=== PATIENT | female | born 1950 | race Caucasian/White ===

== ENCOUNTER 2021-04-29 14:55 | Emergency (ER) | payer MEDICARE, SELFPAY ==
[2021-04-29 15:13] VITALS: BP 131/47; PULSE 66; RESP 18; TEMP 36.8; O2SAT 100
--- NOTE | 2021-04-29 15:13 | ED.WOUNDLAC ---
HPI - Wound/Laceration General Chief Complaint: Wound/Laceration Stated Complaint: laceration to left foot Source: patient Mode of arrival: ambulatory Limitations: no limitations History of Present Illness HPI narrative: Patient is a 7-year-old female who presents with laceration to dorsal left foot. Patient reports dropping a butter knife while cooking this evening. She denies other injuries. Full flexion extension of foot. Bleeding controlled at this time with dressing. Patient is unknown when last tetanus was. She denies taking [id number] medications prior to arrival. Related Data Home Medications Medication Instructions Recorded Confirmed atenolol 50 mg PO DAILY 04/29/21 04/29/21 colestipol 1 g PO DAILY 04/29/21 04/29/21 desloratadine 5 mg PO DAILY 04/29/21 04/29/21 rosuvastatin 40 mg PO DAILY 04/29/21 04/29/21 Allergies Allergy/AdvReac Type Severity Reaction Status Date / Time amoxicillin Allergy Unknown Unknown Verified 04/29/21 15:31 Sulfa (Sulfonamide Allergy Unknown Unknown Verified 04/29/21 15:31 Antibiotics) Review of Systems Review of Systems: CONSTITUTIONAL: Denies fever, chills, or sweats. EYES: Denies visual changes, redness, or discharge. ENT: Denies rhinorrhea, congestion, sore throat, or otalgia. CARDIOVASCULAR: Denies chest pain, palpitations, or edema. RESPIRATORY: Denies cough or dyspnea. GASTROINTESTINAL: Denies abdominal pain, nausea, vomiting, or diarrhea. GENITOURINARY: Denies dysuria or hematuria. SKIN: Laceration to the left foot MUSCULOSKELETAL: Denies back pain, joint pain, or myalgia. NEUROLOGIC: Denies headache, numbness, dizziness, or weakness. PSYCHIATRIC: Denies anxiety or depression. [facility] Past Medical History Medical History Anxiety Arthritis GERD (gastroesophageal reflux disease) HTN (hypertension) Hypercholesterolemia IBS (irritable bowel syndrome) Urinary tract infection Uterine fibroid Surgical History Surgical History History of hysterectomy Hx of cholecystectomy Family History Family History (Updated 04/29/21 @ 15:51 by MARGARITA Dumont) Other Acute myocardial infarction Depression Heart disease Hypertension Malignant neoplasm of prostate Social History Social History (Updated 04/29/21 @ 15:52 by MARGARITA Dumont) Smoking status: Never smoker Alcohol intake: never Substance use: never Living arrangements: with family Occupation/Education: retired Comments At the time of signature, I have reviewed and agree with nursing past medical, surgical, social, and family history unless otherwise noted. Please see nursing chart for further information. There is no relevant family history pertinent to the presenting complaint. Exam Narrative: GENERAL: Well-appearing, well-nourished, and in no acute distress. HEAD: Normocephalic, atraumatic. EYES: EOMI. No redness or drainage. Conjunctiva are normal. ENT: Mucous membranes pink and moist. CHEST: No respiratory distress. HEART: Regular rate and rhythm. EXTREMITIES: Normal range of motion. No edema. SKIN: Approximate 2.75 cm laceration to dorsal left foot NEURO: No focal deficits. Alert and oriented x3. Gait steady. PSYCH: Normal affect. No signs of depression or anxiety. Procedures Laceration Laceration 1: Date: 04/29/21 Time: 15:53 Site: lower extremity Side (If applicable): left Size (cm): 2.75 Description: linear Depth: simple, single layer Local Anesthetic: lidocaine 1% Amount of anesthesia used (mL): 3 Pre-repair: irrigated ====== Skin Level ====== Skin layer closed with: nylon Size (cm): 5-0 Number of sutures: 9 Technique: simple, interrupted ====== Subcutaneous Layer ====== ====== Muscle Layer ====== ====== Tendon Layer ======
[2021-04-29] MEDS: TETANUS,DIPHTHERIA,AC PERTUSSIS ADULT (0.5 ML) BOOSTRIX IM (15:26)
== END 2021-04-29 16:03 | disposition home or self-care (01) ==
PROVIDERS: Emergency Provider Nurse Practitioner; PCP Family Medicine
DX: S91.312A Laceration without foreign body, left foot, initial encounter (principal); F41.9 Anxiety disorder, unspecified; I10 Essential (primary) hypertension; Z23 Encounter for immunization; W26.0XXA Contact with knife, initial encounter
CPT/HCPCS: 12002; 90471; 90715; 99212; G0463

== ENCOUNTER → 2022-01-30 15:33 | Outpatient (CLI) | payer MEDICARE, SELFPAY ==
--- NOTE | ~2022-01-30 | DEXA_ITS ---
Bone Density Report Name: RYDER BUCKNER Age: 71 Sex: Female Ethnicity: White Date of : 1950 Indication: postmenopausal; screening for osteoporosis; hysterectomy; Referring Provider: VAHID, JUAN Almeida Study: Bone densitometry was performed. Exam Date: January 30, 2022 Accession number: [id number] Bone Density: Region BMD T-score Z-score Classification AP Spine (L1-L4) 1.000 -0.4 1.8 Normal Femoral Neck (Left) 0.742 -1.0 0.9 Normal Total Hip (Left) 0.784 -1.3 0.3 Osteopenia Femoral Neck (Right) 0.939 0.8 2.7 Normal Total Hip (Right) 0.776 -1.4 0.2 Osteopenia Total Hip Mean 0.780 -1.4 0.3 Osteopenia World Health Organization criteria for BMD impression classify patients as: Normal (T-score at or above -1.0), Osteopenia (T-score between -1.0 and -2.5), or Osteoporosis (T-score at or below -2.5). 10-year Fracture Risk(1): Major Osteoporotic Fracture 8.9% Hip Fracture 1.1% Reported Risk Factors: [place] (), Neck BMD=0.742, BMI=23.6 (1) FRAX(R) Version 3.08. Fracture probability calculated for an untreated patient. Fracture probability may be lower if the patient has received treatment. Clinical Information Provided by Patient: Has the following medical conditions: Hysterectomy Patient maximum height was 63.0 Menopause Age: 50 No regular weight bearing exercise Drinks caffeinated beverages Onset of menses at age 15 Number of children 2 Impression: The patient has low bone mass, based on the Right Total Hip T-score. The patient has an estimated ten-year risk of hip fracture of 1.1% and an estimated ten-year risk of major fracture of 8.9%, based on the WHO FRAX algorithm. Discussion: BONE DENSITY IS LOW AT ONE OR MORE SKELETAL SITES. This patient's lowest T-score is low at one or more skeletal sites. It meets the World Health Organization's (WHO) criteria for ?low bone mass? (T-score between -1.0 and -2.5). The patient's 10-year risk of fracture as calculated by FRAX is less than the threshold where pharmacological therapy is recommended by the National Osteoporosis Foundation (NOF). However, all treatment decisions require clinical judgment and consideration of individual patient factors, including patient preferences, comorbidities, previous drug use, risk factors not captured in the FRAX model (e.g., frailty, falls, vitamin D deficiency, increased bone turnover, interval significant decline in bone density) and possible under or overestimation of fracture risk by FRAX. The patient should follow a healthful lifestyle (good nutrition with adequate calcium and vitamin D, and appropriate weight-bearing exercise). Follow-Up: Consider repeating this study in 2 to 3 years to reassess this patient's status, or sooner if there is some new clinical indication. Reported by: DELON on 01/10
== END ==
PROVIDERS: Visit Provider Family Medicine
DX: Z78.0 Asymptomatic menopausal state (principal); M85.89 Other specified disorders of bone density and structure, multiple sites
CPT/HCPCS: 77080

== ENCOUNTER 2022-05-31 13:23 | Emergency (ER) | payer MEDICARE, SELFPAY ==
--- NOTE | 2022-05-31 14:03 | ECG_ITS ---
Measurements Intervals [place] Rate: 60 P: 49 AK: 149 QRS: 42 QRSD: 92 T: 47 QT: 404 QTc: 406 Interpretive Statements SINUS RHYTHM NO PREVIOUS ECG AVAILABLE FOR COMPARISON Electronically Signed On 06-01-2022 8:48:15 CDT by Michelle Lacey M.D.
--- NOTE | 2022-05-31 14:07 | ED.CHESTPAIN ---
HPI - Chest Pain General Chief Complaint: Chest Pain Stated Complaint: PULLED MUSCLE Time Seen by Provider: 05/31/22 13:55 Source: patient Mode of arrival: ambulatory Limitations: no limitations History of Present Illness HPI narrative: This was a 71-year-old female patient presenting to the clinic today with complaints of left-sided chest pain and left arm pain. She denies any shortness of breath or palpitations. She reports that she was lifting and reaching for heavy things yesterday and developed pain afterwards. She denies any fever or chills. States the pain is a dull ache and is more painful when she raises her left arm. States she thinks she may have pulled a muscle Related Data Home Medications Medication Instructions Recorded Confirmed atenolol 50 mg tablet 50 mg PO DAILY 04/29/21 04/29/21 colestipol 1 gram tablet 1 g PO DAILY 04/29/21 04/29/21 desloratadine 5 mg tablet 5 mg PO DAILY 04/29/21 04/29/21 rosuvastatin 40 mg tablet 40 mg PO DAILY 04/29/21 04/29/21 Allergies Allergy/AdvReac Type Severity Reaction Status Date / Time amoxicillin Allergy Unknown Unknown Verified 04/29/21 15:31 Sulfa (Sulfonamide Allergy Unknown Unknown Verified 04/29/21 15:31 Antibiotics) Review of Systems Review of Systems: Pertinent positives per HPI. Patient denies any fever, chills, rash, headache, visual changes, dizziness, cough, runny nose, sore throat, shortness of breath,palpitations, nausea, vomiting, diarrhea, constipation, abdominal pain, or any urinary issues. [facility] Past Medical History Medical History Anxiety Arthritis GERD (gastroesophageal reflux disease) HTN (hypertension) Hypercholesterolemia IBS (irritable bowel syndrome) Urinary tract infection Uterine fibroid Surgical History Surgical History History of hysterectomy Hx of cholecystectomy Family History Family History Other Acute myocardial infarction Depression Heart disease Hypertension Malignant neoplasm of prostate Social History Social History Smoking status: Never smoker Alcohol intake: never Substance use: never Comments At the time of my signature, I reviewed and agree with the nursing past medical, surgical, social, and family history. There is no relevant family history pertinent to the patient complaint. Exam Narrative: General: Well-developed, well nourished, in no apparent distress Head: Normocephalic, atraumatic. Chest: No swelling, masses, or lesions noted, normal appearance, even rise and fall of chest wall with respirations, tenderness to palpation over the left anterior chest wall Cardio: Regular rate and rhythm, s1 and s2 normal, no murmur appreciated. Resp: Clear to auscultation bilaterally, no rhonchi, rales, wheezing or rubs. Extremities: No deformity, no edema, no cyanosis, capillary refill less than 2 seconds, peripheral pulses palpable and strong. Integumentary: [place], warm, and dry, intact without lesion, no rashes. Course Course Emergency Course: Portions of this record may have been created with voice recognition software. Level of Care: Express Care Visit Vital Signs Vital signs: Vital signs reviewed MDM - Chest Pain MDM Narrative Medical decision making narrative: At the time of the patient is resting comfortably on exam table. EKG was performed and showed normal sinus rhythm heart rate 60 beats per minute without ectopy. I suspect patient has acute chest wall pain due to inflammation. Supportive measures were discussed with the patient she voiced understanding of discharge instructions and agrees with the treatment plan. Differential Diagnosis Differential diagnosis: Likely stable angina, unstable angina pectoris, atypical chest pain, st
[2022-05-31 14:18] VITALS: BP 128/63; PULSE 64; RESP 16; TEMP 37.1; O2SAT 99
== END 2022-05-31 14:15 | disposition home or self-care (01) ==
PROVIDERS: Emergency Provider Nurse Practitioner Family; PCP Family Medicine
DX: R07.89 Other chest pain (principal); M19.90 Unspecified osteoarthritis, unspecified site; K21.9 Gastro-esophageal reflux disease without esophagitis; I10 Essential (primary) hypertension; E78.00 Pure hypercholesterolemia, unspecified
CPT/HCPCS: 93005; 99213; G0463

== ENCOUNTER 2023-08-01 15:24 | Emergency (ER) | payer MEDICARE, SELFPAY ==
--- NOTE | ~2023-08-01 | XR_ITS ---
XR knee RT 3V DATE: 08/01/2023 16:09 INDICATION: Fall 2 days ago. Right knee injury, pain TECHNIQUE: [place] and standing AP and lateral views COMPARISON: None FINDINGS: No fracture or dislocation or joint effusion. No periosteal reaction or bone destruction, r adiopaque intra-articular loose body or chondrocalcinosis. There is mild prominence of the medial tib ial spine. IMPRESSION: Mild degenerative change. No significant abnormality Reviewed, dictated and finalized at location A. NG ROW BOSS
[2023-08-01 15:35] VITALS: BP 128/59; PULSE 70; RESP 16; TEMP 36.6; O2SAT 100
--- NOTE | 2023-08-01 15:55 | ED.LOWEXIN ---
HPI - Extremity Injury (Lower) General Chief Complaint: Extremity Injury, Lower Stated Complaint: Fall Injury, Right Knee Swelling Source: patient Mode of arrival: ambulatory Limitations: no limitations History of Present Illness HPI Narrative: 73-year-old female presenting for complaint of right knee pain after fall 2 days ago. She states she tripped on the sidewalk. She was wearing 2 layers of pants but sustained an abrasion to the knee. Endorses mild swelling. She applied ice and took 4 baby aspirin. Denies decreased range of motion, numbness, tingling or weakness. Pain is mild. Related Data Home Medications Medication Instructions Recorded Confirmed atenolol 50 mg tablet 50 mg PO DAILY 04/29/21 08/01/23 colestipol 1 gram tablet 1 g PO DAILY 04/29/21 08/01/23 desloratadine 5 mg tablet 5 mg PO DAILY 04/29/21 08/01/23 rosuvastatin 40 mg tablet 40 mg PO DAILY 04/29/21 08/01/23 esomeprazole magnesium 40 mg 40 mg PO DAILY 08/01/23 08/01/23 capsule,delayed release Allergies Allergy/AdvReac Type Severity Reaction Status Date / Time amoxicillin Allergy Unknown Unknown Verified 08/01/23 15:39 Sulfa (Sulfonamide Allergy Unknown Unknown Verified 08/01/23 15:39 Antibiotics) Review of Systems Review of Systems: CONSTITUTIONAL: Denies body aches, fever, chills EYES: Denies visual changes ENT: Denies rhinorrhea, congestion CARDIOVASCULAR: Denies chest pain, palpitations, or edema. RESPIRATORY: Denies cough or dyspnea. GASTROINTESTINAL: Denies abdominal pain, nausea, vomiting, or diarrhea. SKIN: reports right knee wound MUSCULOSKELETAL: Reports right knee pain denies back pain, or myalgia. NEUROLOGIC: Denies headache, numbness, tingling, or weakness. All systems reviewed & are unremarkable except as noted in HPI and below PMFSH Past Medical History Medical History Anxiety Arthritis GERD (gastroesophageal reflux disease) HTN (hypertension) Hypercholesterolemia IBS (irritable bowel syndrome) Urinary tract infection Uterine fibroid Surgical History Surgical History History of hysterectomy Hx of cholecystectomy Family History Family History Other Acute myocardial infarction Depression Heart disease Hypertension Malignant neoplasm of prostate Social History Social History Smoking status: Never smoker Alcohol intake: never Substance use: never Living arrangements: with family Occupation/Education: retired Comments At time of signature, I have reviewed and agree with nursing past medical, surgical, social and family history unless otherwise noted. Please see nursing chart for further information. There is no relevant family history pertinent to the presenting complaint Exam Narrative: GENERAL: Well-appearing CHEST: Speaks in full sentences. No respiratory distress. HEART: Regular rate and rhythm. Normal and equal peripheral pulses. EXTREMITIES: RLE has normal strength and sensation, normal range of motion at knee without pain. No swelling or ecchymosis, No point tenderness. No obvious deformity; alignment normal, pulse palpable and equal bilaterally, skin warm, dry, pink. Capillary refill less than 3 seconds. SKIN: Warm, dry, Right anterolateral knee abrasion approx 1cm diameter, no active drainage. NEURO: Alert and oriented x3. PSYCH: Normal mood and affect Course Course Emergency Course: Patient is aware of diagnosis, understands and agrees to treatment plan. Anticipatory guidance given. Patient agrees to follow-up as directed and is aware of reasons to seek care at the emergency department. Portions of this record may have been created with voice recognition software Level of Care: Express Care Visit Vital Signs Vital signs: Vital Sig
== END 2023-08-01 16:51 | disposition home or self-care (01) ==
PROVIDERS: Emergency Provider Nurse Practitioner Family
DX: S80.211A Abrasion, right knee, initial encounter (principal); W18.09XA Striking against other object with subsequent fall, initial encounter; M19.90 Unspecified osteoarthritis, unspecified site; K21.9 Gastro-esophageal reflux disease without esophagitis; I10 Essential (primary) hypertension; E78.00 Pure hypercholesterolemia, unspecified
CPT/HCPCS: 73562; 99213; G0463

== ENCOUNTER 2023-11-20 17:59 | Emergency (ER) | payer MEDICARE, SELFPAY ==
[2023-11-20 18:25] VITALS: BP 193/68; PULSE 57; RESP 16; TEMP 36.1; O2SAT 100
[2023-11-20 19:57] LABS: Appearance Urine Clear (Clear); Bacteria Urine None Seen /hpf; Bilirubin Urine Negative (Negative); Blood Urine Negative (Negative); Color Urine Yellow (Yellow); Glucose Urine UA Negative (Negative); Ketones Urine Negative (Negative); Leukocyte Esterase Ur 2+ LEU/UL (Negative); Need Manual Microscopic Reviewed; Nitrate Urine Negative (Negative); Non Pathogenic Casts 0-2; Protein Urine Negative (Negative); RBC Urine 0-2 /hpf (0-2); Squamous Epithelial Cell Urine None Seen /hpf (Few); Urobilinogen Urine 0.2 mg/dL (<2.0); WBC Urine 21-50 /hpf (0-3)
[2023-11-20 19:58] LABS: Specific Grav Ur 1.003 (1.001-1.035)
[2023-11-20 20:02] LABS: Add Urine Microscopic? YES
[2023-11-20 22:19] VITALS: BP 170/69; PULSE 56; RESP 17; O2SAT 98
--- NOTE | 2023-11-20 22:33 | ED.GENADULT ---
HPI - General Adult General Chief complaint: Unspecified Stated complaint: high blood pressure Time Seen by Provider: 11/20/23 21:11 History of Present Illness HPI narrative: This is a 73-year-old female presenting ED with chief complaint of elevated blood pressures. Patient says she frequently checks blood pressure at home. It was elevated today at 170/70. She is otherwise asymptomatic. Patient has been told by her primary care physician that her elevated blood pressures are link to anxiety patient denies neurologic deficits confusion chest pain difficulty breathing. Patient has been having urinary urgency without dysuria. She is concerned she has UTI. Related Data Home Medications Medication Instructions Recorded Confirmed atenolol 50 mg tablet 50 mg PO DAILY 04/29/21 08/01/23 colestipol 1 gram tablet 1 g PO DAILY 04/29/21 08/01/23 desloratadine 5 mg tablet 5 mg PO DAILY 04/29/21 08/01/23 rosuvastatin 40 mg tablet 40 mg PO DAILY 04/29/21 08/01/23 esomeprazole magnesium 40 mg 40 mg PO DAILY 08/01/23 08/01/23 capsule,delayed release Allergies Allergy/AdvReac Type Severity Reaction Status Date / Time amoxicillin Allergy Unknown Unknown Verified 08/01/23 15:39 Sulfa (Sulfonamide Allergy Unknown Unknown Verified 08/01/23 15:39 Antibiotics) [facility] Past Medical History Medical History Anxiety Arthritis GERD (gastroesophageal reflux disease) HTN (hypertension) Hypercholesterolemia IBS (irritable bowel syndrome) Urinary tract infection Uterine fibroid Surgical History Surgical History History of hysterectomy Hx of cholecystectomy Family History Family History Other Acute myocardial infarction Depression Heart disease Hypertension Malignant neoplasm of prostate Social History Social History Smoking status: Never smoker Alcohol intake: never Substance use: never Living arrangements: with family Occupation/Education: retired Exam Narrative: APPEARANCE: No apparent distress. Head: atraumatic. EYES: EOMI, NOSE: Atraumatic NECK: Trachea midline RESPIRATORY: No increased rate of breathing CTAB CARDIOVASCULAR: RRR, no peripheral edema, equal pulses ABDOMINAL: Non-distended soft nontender MUSCULOSKELETAl: No obvious deformities NEURO: Alert. Cranial nerves 2-12 grossly intact. Sensation light touch, motor function cerebellar function intact for 4 extremities. Gait exam was normal. SKIN:: Warm, dry. Normal color PSYCHIATRIC: Normal affect Course Vital Signs Vital signs: Vital Signs Temperature 96.9 F L 11/20/23 18:25 Pulse Rate 57 L 11/20/23 18:25 Respiratory Rate 16 11/20/23 18:25 Blood Pressure 193/68 H 11/20/23 18:25 Pulse Oximetry 100 11/20/23 18:25 Temperature 96.9 F L 11/20/23 18:25 Pulse Rate 56 L 11/20/23 22:19 Respiratory Rate 17 11/20/23 22:19 Blood Pressure 170/69 H 11/20/23 22:19 Pulse Oximetry 98 11/20/23 22:19 Medical Decision Making MDM Narrative Medical decision making narrative: -Course: 73-year-old female presenting with asymptomatic hypertension. Patient was educated about hypertension and reassured. She has follow-up with primary care physician next week. Patient also had urinary symptoms as UTI. Given dose of Keflex and a prescription. -DDX includes but is not limited to: Hypertension, asymptomatic hypertension, anxiety, UTI -Independent interpretation of studies: UA indicative of infection. -Interventions: Cephalexin -Shared decision making / Disposition: discharge -RX cephalexin 500 mg b.i.d. x5 days Vital Signs Vital Signs: Vital Signs Temperature 96.9 F L 11/20/23 18:25 Pulse Rate 57 L 11/20/23 18:25 Respiratory Rate 16 11/20/23 18:25 Blood Pressure 193/68 H 11/09
[2023-11-20] MEDS: CEPHALEXIN 500 MG CAPSULE PO (22:44)
[2023-11-20 22:47] VITALS: BP 173/64; PULSE 61; RESP 17; O2SAT 100
== END 2023-11-20 22:49 | disposition home or self-care (01) ==
PROVIDERS: Emergency Medicine; Emergency Provider Emergency Medicine; PCP Family Medicine
DX: I10 Essential (primary) hypertension (principal); N39.0 Urinary tract infection, site not specified; M19.90 Unspecified osteoarthritis, unspecified site; E78.00 Pure hypercholesterolemia, unspecified; K21.9 Gastro-esophageal reflux disease without esophagitis; K58.9 Irritable bowel syndrome, unspecified; Z87.440 Personal history of urinary (tract) infections; Z90.710 Acquired absence of both cervix and uterus; Z90.49 Acquired absence of other specified parts of digestive tract
CPT/HCPCS: 81001; 87077; 87086; 87088; 87186; 99283; A9270

== ENCOUNTER 2025-06-20 13:18 | Outpatient (CLI) | payer MEDICARE, SELFPAY ==
--- NOTE | 2025-06-20 | ECHO_ITS ---
Patient Info Name: Sarahi Bill Age: 74 years : 1950 Gender: Female Ht: 63 in Wt: 127 lbs BSA: 1.61 m2 HR: 63 bpm BP: 120 / 68 mmHg Heart Rhythm: Sinus Rhythm Technical Quality: Fair Exam Date: 06/20/2025 2:01 PM Patient Status: O Admit Date: 06/20/2025 Exam Type: CA echo doppler color flow Complete two-dimensional, color flow and Doppler transthoracic echocardiogram is performed. German Instructor: Wanda Flores Attending Provider: Adelina Thompson Summary 1. Complete two-dimensional, color flow and Doppler transthoracic echocardiogram is performed. 2. There is normal biventricular size and systolic function. 3. There are no significant valvular abnormalities. Left Ventricle The left ventricle is normal in size and systolic function. The left ventricular ejection fraction is visually estimated to be 60-65%. Right Ventricle The right ventricle is normal in size and systolic function. Left Atria The left atrium is normal size. Right Atria The right atrium is normal size. Atrial Septum The atrial septum is not well visualized. Aortic Valve The aortic valve is trileaflet and sclerotic. There is no aortic stenosis. There is no aortic regurgitation. Pulmonic Valve The pulmonic valve not well visualized. There is trace pulmonic valve regurgitation. Mitral Valve The mitral valve leaflets are sclerotic. There is no mitral stenosis. There is no mitral regurgitation. Tricuspid Valve The tricuspid valve is normal. There is trace tricuspid regurgitation. Pericardium/Pleural Pericardium is normal in appearance with no evidence for significant pericardial effusion. Inferior Vena Cava Normal inferior vena cava with >50% collapse upon inspiration consistent with normal right atrial pressure, 3 mmHg. Aorta The aortic root at the level of the sinus of Valsalva measures 2.6 cm in diameter. Left Ventricular Outflow Tract Name Value Normal LVOT 2D LVOT Diameter 1.9 cm LVOT Doppler LVOT Peak Velocity 102 cm/s LVOT Peak Gradient 4 mmHg LVOT Mean Gradient 2 mmHg LVOT VTI 22 cm LVOT VTI/AV VTI Ratio 0.8 LVOT Stroke Volume 61 ml LVOT CO 3.6 l/min LVOT CI 2.2 l/min/m2 Pulmonic Valve Name Value Normal RVOT Doppler RVOT Peak Velocity 77 cm/s RVOT Peak Gradient 2 mmHg PV Doppler PV Peak Velocity 105 cm/s PV Peak Gradient 4 mmHg Mitral Valve Name Value Normal MV Diastolic Function MV E Peak Velocity 67 cm/s MV A Peak Velocity 55 cm/s MV E/A 1.2 MV Decel Time (PW) 153 ms MV Annular TDI MV E/e' (Septal) 12.1 MV E/e' (Lateral) 10.3 MV E/e' (Average) 11.2 Tricuspid Valve Name Value Normal TV Regurgitation Doppler TR Peak Velocity 201 cm/s TR Peak Gradient 16 mmHg Estimated PAP/RSVP RA Pressure 3 mmHg <=5 PA Systolic Pressure 19 mmHg <36 RV Systolic Pressure 19 mmHg <36 TV Annular TDI TV Lateral Sweta s' Velocity 9.0 cm/s >=9.5 Aorta Name Value Normal Ascending Aorta Ao Root Diameter (MM) 2.9 cm Ao Root Diam Index (MM) 1.8 cm/m2 Aortic Valve Name Value Normal AV Doppler AV Peak Velocity 114 cm/s AV Peak Gradient 5 mmHg AV Mean Gradient 3 mmHg AV VTI 27 cm AV Area (Cont Eq VTI) 2.3 cm2 >=3.0 AV Area (Cont Eq Bob) 2.6 cm2 AV DI (Bob) 0.90 AV Regurgitation 2D LVOT Area 2.8 cm2 Ventricles Name Value Normal LV Dimensions 2D/MM IVS Diastolic Thickness (2D) 0.9 cm 0.6-1.0 LVID Diastole (2D) 3.5 cm 3.8-5.2 LVIW Diastolic Thickness (2D) 0.9 cm 0.6-0.9 LVID Systole (2D) 2.1 cm 2.2-3.5 LVOT Diameter 1.9 cm LV Mass (2D Cubed) 86.55 g 67.00-162.00 LV Mass Index (2D Cubed) 54 g/m2 43-95 Relative Wall Thickness (2D) 0.51 <=0.42 LV Fractional Shortening/Ejection Fraction 2D/MM LV Fractional Shortening (2D) 39 % 27-45 LV EF (2D Teichholz) 70 % LV Diastolic Volume (4C MOD) 28 ml LV EF (4C MOD) 68 % LV Diastolic Volume (2C MOD) 45 ml LV EF (2C MOD) 74 % LV Diastolic Volume (BP MOD) 37 ml 46-106 LV Diastolic Volume Index (BP MOD) 23 ml/m2 29-61 LV Systolic Volume (BP MOD) 11 ml 14-42 LV Systolic Volume Index (BP MOD) 7 ml/m2 8-24 LV EF (BP MOD) 71 % 54-74 LV Diastolic Length (4C) 5.8 cm LV Systolic Length (4C) 4.8 cm LV Stroke Volume (4C MOD) 19 ml Atria Name Value Normal LA Dimensions LA Dimension (MM) 3.7 cm 2.7-3.8 LA Volume (4C A-L) 30 ml LA Volume (BP A-L) 31 ml RA Dimensions RA Area (4C) 10.1 cm2 <=18.0 Report Signatures
--- OUTSIDE RECORDS SUMMARY | 2025-06-20 13:32 | XMS_ITS | Encounter Summary ---
Author Organization [facility] Address [address] [place] [id number] Care Team Providers Care Staff Internist Office Based Only Name Role Phone Adelina Thompson MD Primary Care Provider [phone] Encounter Details Date Type Department Care Team (Late st Contact Info) Description 10/17/2016 Orders Only [facility] ProviderBam MD [address] [place] [id number] Social History Tobacco Use Types Packs/Day Years Used Date Smoking Tobacco: Never Assessed Comments Unknown Sex and Gender Information Value Date Recorded Sex Assigned at Not on file Legal Sex Female 10:10 AM [employer] Gender Identity Female 06/28/2021 9:22 AM [employer] Sexual Orientation Straight 06/28/2021 9: 22 AM [employer] documented as of this encounter Plan of Treatment Not on file documented as of this encounter Procedures Procedure Name Priority Date/Time Associated Diagnosis Comments CARDIOLOGY REPORT 10/17/2016 documented in this encounter Results * CARDIOLOGY REPORT (10/17/2016) Anatomical Region Laterality Modality Other Narrative 10/17/2016 Ordered by an unspecified provider. Historical Provider [facility] Final Result documented in this encounter Visit Diagnoses Not on filedocumented in this encounter Care Teams Staff Internist Office Based Only Relationship Specialty Start Date End Date Adelina Thompson MD [address] [place] [address] PCP - General 11/08/16 documented as of this encounter
--- OUTSIDE RECORDS SUMMARY | 2025-06-20 13:33 | XMS_ITS | Clinical Summary ---
Author Organization [facility] Address [address] [facility] Attn: Epic Prelude ADT [place] [address] Care Team Providers Care Glove Boarder Name Role Phone Unavailable Primary Care Provider Unavailabl e Medications desloratadine (CLARINEX) 5 mg tablet Take 1 Tablet (5 mg) by mouth daily for allergies 90 Tablet 4 3 Active Social History Tobacco Use Types Packs/Day Years Used Date Smoking Tobacco: Never Assessed Comments Unknown Sex and Gender Information Value Date Recorded Sex Assigned at Not on file Legal Sex Female 3:27 PM CDT Gender Identity Not on file Sexual Orientation Not on file Plan of Treatment Health Maintenance Due Date Last Done Comments DTAP/TDAP/TD VACCINES (1 - Tdap) 1969 BREAST CANCER SCREENING 1990 COLORECTAL SCREENING 1995 Colorectal Cancer Screening 1995 FIT-DNA Q 3 years 1995 FIT/FOBT Q 1 year 1995 Flex Sig/CT Colonography Q 5 years 1995 PNEUMOCOCCAL VACCINE 50+ YEARS (1 of 1 - PCV) 06/23/20 00 ZOSTER VACCINE (1 of 2) 2000 OSTEOPOROSIS SCREENING 2015 INFLUENZA VACCINE (#1) 2025 RSV VACCINE (60+ or ) (1 - 1-dose 75+ series) 2025 Insurance RX [employer] (INTERNAL) [facility] RX [employer] RX Member Subscriber Plan / Payer (Ef fective for All Dates) Name:RYDER BUCKNER Relation to Subscriber:Self Name:Ryder Buckner Payer ID:Not on file Group ID:[id number] Type:RX Commercial Address: [place]
--- OUTSIDE RECORDS SUMMARY | 2025-06-20 13:33 | XMS_ITS | Clinical Summary ---
Author Organization [facility] [place] [address] Address [address] [place] [address] Care Team Providers Care Certified Personal Finance Counselor Name Role Phone Adelina Thompson MD Primary Care Provider [phone] Allergies Active Allergy Reactions Criticality Noted Date Comments Amoxicillin Unknown Low Ciprofloxacin Stomach upset Low 09/28/2016 Stomach/GI Upset Oxybutynin Itching Low 09/28/2016 Itching Sulfa (Sulfonamide Antibiotics) Unknown Low Medications acetaminophen (TYLENOL) 325 mg tablet take 1 tablet by oral route every 4 hours as needed 0 0 11/08/2016 Active Bifidobacterium infantis (ALIGN) 4 mg capsule take 1 by Oral route once 0 0 11/08/[address] (NexIUM) 40 mg capsule take 1 capsule by oral route every day 0 0 11/08/2016 Active colestipol (COLESTID) 1 gram tablet Take 1 tablet (1 g total) by mouth daily 07/10/2017 Active desloratadine (CLARINEX) 5 mg tablet Take 1 tablet (5 mg total) by mouth daily 12 07/16/2017 Active fluticasone (FLONASE) 50 mcg/actuation nasal spray 06/28/2017 Active atenolol (TENORMIN) 50 mg tablet Take 1 tablet (50 mg total) by mouth daily. 0 09/01/2017 Active aluminum hydroxide - magnesium carbonate (GAVISCON) suspension 95 MG-358 mg/15 mL Take 30 mL by mouth daily as needed (GERD). 02/10/2018 Active rosuvastatin (CRESTOR) 40 mg tablet Take 1 tablet (40 mg total) by mouth daily Active Active Problems Problem Noted Date Diagnosed Date Palpitations 06/24/2022 Mixed hyperlipidemia 02/10/2018 Other chest pain 11/08/2016 Overview (01/03/2017): Burning chest pain Gastroesophageal reflux disease 11/08/2016 Overview (01/03/2017): Chronic GERD Essential (primary) hypertension 11/08/2016 Overview (01/03/2017): Essential hypertension Surgical History Surgery Date Site/Laterality Comments CHOLECYSTECTOMY Cholecystectomy TOTAL ABDOMINAL HYSTERECTOMY Hysterectomy, total REDUCTION MAMMAPLASTY Bilateral Early 40's OOPHORECTOMY Medical History Medical History Date Comments Hx Other Medical Breast reductio n Gastroesophageal reflux disease GERD Hypertension Hypertension Hx Other Medical esophageal stri ctures dilated; Comments: ELU 11/09/2016 - Cataract Chronic kidney disease Family History Medical History Relation Name Comments Other Brother Pacemaker; No Known Problems Daughter 1 No Known Problems Daughter 2 Heart attack Father Viral Myocardial infa rction; Cause of : Myocardial infarction Heart attack Mother Britni Myocardial infa rction; Cause of : Myocardial infarction Diabetes Other Family history of Diabetes mellitus; Breast cancer Neg Hx Ovarian cancer Neg Hx Relation Name Status Comments Brother Daughter 1 Alive Daughter 2 Alive Father Viral (Age 80) Mother Britni (Age 77) Other Social History Tobacco Use Types Packs/Day Years Used Date Smoking Tobacco: Never Cigarettes Smokeless Tobacco: Never Tobacco Cessation:Counseling Given: Not Answered Alcohol Use Standard Drinks/Week Comments No 0 (1 standard drink = 0.6 oz pur e alcohol) Comments No Sex and Gender Information Value Date Recorded Sex Assigned at Not on file Legal Sex Female 10:10 AM REPRESENTATIVE PERSONAL SERVICE Gender Identity Female 06/28/2021 9:22 AM REPRESENTATIVE PERSONAL SERVICE Sexual Orientation Straight 06/28/2021 9: 22 AM REPRESENTATIVE PERSONAL SERVICE Obstetrics History Para Term AB IAB SAB Ectopic Multiple Livin g Live Births 2 2 2 Date Outcome GA Total Labor Labor/2nd/3rd Weight Sex Type Anes PTL Priti A1 A5 Name Clin Term Term Last Filed Vital Signs Vital Sign Reading Time Taken Comments Blood Pressure 138/60 06/16/2024 1:54 PM REPRESENTATIVE PERSONAL SERVICE Pulse 57 06/16/2024 1:54 PM REPRESENTATIVE PERSONAL SERVICE Temperature 36.3 C (97.3 F) 08/01/2018 8:57 PM REPRESENTATIVE PERSONAL SERVICE Respiratory Rate 20 08/01/2018 10:10 PM REPRESENTATIVE PERSONAL SERVICE Oxygen Saturation 98% 06/16/2024 1:54 PM REPRESENTATIVE PERSONAL SERVICE Inhaled Oxygen Concentration - - Weight 58.1 kg (128 lb 1.4 oz) 03/04/2025 1:19 P M CDT Height 160 cm (5' 2.99) 03/04/2025 1:19 PM CDT Body Mass Index 22.7 03/04/2025 1:19 PM CDT Plan of Treatment Health Maintenance Due Date Last Done Comments Colon Cancer Screening-Colonoscopy 1950 Depression Screening 1950 Fall Risk Assessment 1950 Hepatitis C Screening 1950 Hepatitis B Screening 1968 Well Visit 65+ 2015 Zoster Vaccine (2 of 3) 04/20/2018 02/24/20 18, 10/08/2017, 08/11/2009 Osteoporosis Screening-Bone Density Scan 06/07/2023 06/07/2021 Covid-19 Vaccine (5 - 2024-2 6 season) 2025 12/11/2021, 06/13/2021, 10/20/2020, Additional history exists Influenza Vaccine (#1) 2025 , 05/14/2020, 05/27/2019, Additional history exists Breast Cancer Screening-Mammogram 03/04/2026 03/04/2025, 02/27/2024, 02/27/2024, Additional history exists DTaP/Tdap/Td Vaccine (3 - Td or Tdap) 04/29/2031 04/29/2021, 11/04/2010 Pneumococcal vaccine 65+ Completed 017, 07/25/2016, 07/13/2015 Procedures Procedure Name Priority Date/Time Associated Diagnosis Comments SCREENING MAMMOGRAM BILATERAL W ADOLFO Schedule Routine, Read Routine (OP Routine) 03/04/2025 1:36 PM CDT Screening mammogram, encounter for from Last 3 Months or Most Recently Relevant to Health Maintenance Results * Screening Mammogram Bilateral W Adolfo (03/04/2025 1:36 PM CDT) Anatomical Region Laterality Modality Breast Bilateral Mammography Impressions 03/04/2025 1:47 PM CDT BI-RADS ATLAS category (overall): 2 - Benign There is no mammographic evidence of malignancy. A 1 year screening mammogram is recommended. The patient has been or will be contacted. We recommend annual screening mammography for women at average risk of breast cancer beginning at age 40, based on guidelines of the [employer] (ACR Practice Parameter for the Performance of Screening and Diagnostic Mammography) and [employer]. For women with and elevated risk of breast cancer, please refer to the ACR Practice Parameter for specific screening recommendations. The patient will be entered into a reminder system with a target due date of 1 year for her next screening exam. Narrative 03/04/2025 1:47 PM CDT Screening Mammogram Bilateral W Adolfo: 03/04/25 The study was acquired using full field digital technology and interpreted from soft copy. 2D digital mammographic views, as well as 3D digital tomosynthesis were performed in the CC and MLO projections. CLINICAL: Screening mammogram, encounter for. No relevant medical history has been documented for this patient. History of breast cancer in Neg Hx. No comparisons were made when reading this study. BREAST TISSUE: There are scattered areas of fibroglandular density. FINDINGS: There are stable post operative changes of reduction mammoplasty in both breasts. There is no new suspicious finding in either breast on mammogram. us Self Screening Mammogram IMG MAMMO PROCEDURES Fi nal Result from Last 3 Months or Most Recently Relevant to Health Maintenance Insurance MEDICARE [facility] MEDICARE [facility] MEDICARE [facility] MEDICARE SUPPLEMENT Care Teams Certified Personal Finance Counselor Relationship Specialty Start Date End Date Adelina Thompson MD [address] [address] PCP - General 11/08/16
--- OUTSIDE RECORDS SUMMARY | 2025-06-20 13:33 | XMS_ITS | Encounter Summary ---
Author Organization [facility] Address [address] [facility] [address] [place] [id number] Care Team Providers Care Reference Data Expert Name Role Phone Adelina Thompson MD Primary Care Provider [phone] Encounter Details Date Type Department Care Team (Late st Contact Info) Description 10/03/2015 Orders Only [facility] ProviderBam MD [address] [place] [id number] Social History Tobacco Use Types Packs/Day Years Used Date Smoking Tobacco: Never Assessed Comments Unknown Sex and Gender Information Value Date Recorded Sex Assigned at Not on file Legal Sex Female 10:10 AM AUTOMOTIVE PARTS SALESPERSON Gender Identity Female 06/28/2021 9:22 AM AUTOMOTIVE PARTS SALESPERSON Sexual Orientation Straight 06/28/2021 9: 22 AM AUTOMOTIVE PARTS SALESPERSON documented as of this encounter Plan of Treatment Not on file documented as of this encounter Procedures Procedure Name Priority Date/Time Associated Diagnosis Comments CARDIOLOGY REPORT 10/03/2015 documented in this encounter Results * CARDIOLOGY REPORT (10/03/2015) Anatomical Region Laterality Modality Other Narrative 10/03/2015 Ordered by an unspecified provider. Historical Provider [facility] Final Result documented in this encounter Visit Diagnoses Not on filedocumented in this encounter Care Teams Reference Data Expert Relationship Specialty Start Date End Date Adelina Thompson MD [address] [place] [address] PCP - General 11/08/16 documented as of this encounter
== END 2025-06-20 13:19 | disposition home or self-care (01) ==
LOC: ANHCARD 13:20
PROVIDERS: PCP Family Medicine; Visit Provider Family Medicine
DX: I10 Essential (primary) hypertension (principal)
CPT/HCPCS: 93306